=== PATIENT | female | born 1990 | race Caucasian/White ===

== ENCOUNTER 2024-03-14 16:07 | Outpatient (CLI) | payer MEDICAID | END 2024-03-14 23:59 | disposition home or self-care (01) | LOC: RAD 16:07 | PROVIDERS: ATTEND Nurse Practitioner Obstetrics & Gynecology | DX: O32.1XX0 Maternal care for breech presentation, not applicable or unspecified (principal); O09.93 Supervision of high risk pregnancy, unspecified, third trimester; Z3A.38 38 weeks gestation of pregnancy | CPT/HCPCS: 76805 ==

== ENCOUNTER 2024-03-21 11:18 | Outpatient (CLI) | payer MEDICAID | END 2024-03-21 23:59 | disposition home or self-care (01) | LOC: RAD 11:18 | PROVIDERS: ATTEND Nurse Practitioner Obstetrics & Gynecology | DX: O28.8 Other abnormal findings on antenatal screening of mother (principal); Z3A.00 Weeks of gestation of pregnancy not specified | CPT/HCPCS: 76801 ==